=== PATIENT | male | born 1990 | race Caucasian/White ===

== ENCOUNTER 2023-05-07 16:41 | Emergency (ER) | payer SELFPAY ==
[2023-05-07 16:42] VITALS: BP 148/86; PULSE 66; RESP 16; TEMP 36.4; O2SAT 100; BMI 23.1
--- NOTE | 2023-05-07 16:46 | EDS_ITS ---
HPI History of Present Illness Chief Complaint: Cellulitis Informant: patient Onset/Context/Timing Onset: Days (5) Context: Gradual Onset Timing: Continuous Quality: Dull, burning, throbbing Location: Left fifth finger Worsened by: Dependent position Relieved by: Elevation of his left hand Narrative Narrative: Patient presents with an abscess to his left fifth finger that has been getting worse over the last 5 days. Patient states it is gradually getting worse. Pat ient describes the pain as dull, burning, and throbbing. Patient admits to some redness over the fifth finger and is spreading over to the ulnar aspect of the left hand. Patient admits to some purulent drainage. Patient mitts to some tingling into his finger. Patient states he has had other abscesses that drained spontaneously recently. Patient denies any fevers or chills. Patient denies any nausea or vomiting. PFSH PFSH Home Medications NK 05/07/23 [History Last Taken Unknown] cephalexin 500 mg capsule 500 mg PO Q6 #40 CAPSULES 05/07/23 [Rx Last Taken Unknown] hydrocodone-acetaminophen 5-325mg 5mg-325mg 1 tab PO Q6H PRN PRN Pain 3 days #10 TABLETS 05/07/23 [Rx Last Taken Unknown] mupirocin 2 % topical ointment 1 applic topical TID #1 tube 05/07/23 [Rx Last Taken Unknown] Allergy/AdvReac Type Severity Reaction Status Date / Time No Known Allergies Allergy Verified 05/07/23 16:42 Surgical History no surgical history no surgical history Social History Smoking Status: Never smoker ROS ROS ED Constitutional Constitutional ED: Denies chills or fever(s) Eyes Eyes: Denies blurry vision or change in vision ENT ENT ED: Denies rhinorrhea or sore throat Cardiovascular Cardiovascular: Denies chest pain or palpitations Respiratory/Chest Respiratory/Chest: Denies cough or dyspnea Gastrointestinal Gastrointestinal: Denies nausea or vomiting Genitourinary Genitourinary ED: Denies dysuria or hematuria Musculoskeletal Musculoskeletal: Denies back pain or neck pain Integumentary Reports abscess; Denies rash Neurologic Neurologic: Denies headache(s) or weakness Allergic/Immunologic Allergic/Immunologic ED: Denies mouth swelling or urticaria EXAM Physical Exam Const Vital Signs: 05/07/23 16:42 Temperature 97.5 F L Temperature Source Temporal Pulse Rate 66 Respiratory Rate 16 Blood Pressure 148/86 H Blood Pressure Mean 106 Pulse Ox 100 Oxygen Delivery Method Room Air Positive well nourished and well developed General Appearance ED: well developed and NAD HEENT Reports moist mucous membranes Neck supple Neuro oriented x3, CN's II-XII intact bilaterally and no sensory deficits noted Sensorium / Orientation: alert Motor Exam: strength 5/5 throughout Psych mental status grossly normal Skin Skin Narrative: There is edema, erythema, and purulent drainage coming from the dorsal aspect of the proximal phalanx of the left fifth finger. The erythema extends into the middle and distal phalanges. There is some erythema over the dorsal aspect of the distal fourth and fifth metacarpal areas. Range of motion was slightly limited in flexion and extension of the MP, PIP, and DIP joints secondary to pain. Sensation was intact to light touch in all digits. Capillary refill was less than 2 seconds in all digits. There is no tenderness over the palmar aspect of the fifth finger. MDM MDM MDM Narrative Medical decision making narrative: Patient was advised that this is most likely an abscess over his fifth finger. Differential diagnosis includes osteomyelitis, and tenosynovitis. X-rays of the left hand will be obtained to assess for osteomyelitis. CBC will be obtained to assess for leukocytosis and anemia. Basic metabolic profile will be obtained to assess for electrolyte abnormality and renal function. Lab Data Attestation: I reviewed the patient's lab results. Lab results narrative: CBC was reviewed. There is a mild leukocytosis of 14.6. The remainder is within normal limits. Basic metabolic profile was reviewed and was within normal limits. Labs: Laboratory Results - last 24 hr 05/07/23 17:35 WBC 14.6 H RBC 4.90 Hgb 14.8 Hct 44.7 MCV 91.2 MCH 30.2 MCHC 33.1 RDW Std Deviation 41.3 RDW Coeff of Vonnie 12.5 Plt Count 216 MPV 10.1 Immature Gran % (Auto) 0.400 Neut % (Auto) 80.6 H Lymph % (Auto) 10.9 L [place] % (Auto) 6.9 Eos % (Auto) 0.7 Baso % (Auto) 0.5 Absolute Neuts (auto) 11.8 H Absolute Lymphs (auto) 1.59 Nucleated RBC % 0 Sodium 137 Potassium 4.0 Chloride 105 Carbon Dioxide 28.0 Anion Gap 4 L BUN 14 Creatinine 0.89 Estim Creat Clear Calc 128.30 Est GFR (MDRD) Af Amer 126 Est GFR (MDRD) Non-Af 104 BUN/Creatinine Ratio 15.8 Glucose 112 H Calcium 9.4 Radiography Diagnostic Testing: Clinical Impression(s) from Imaging Studies Hand X-Ray 05/07/23 17:35 IMPRESSION: Soft tissue swelling throughout the hand. No acute osseous abnormalities. Electronically Signed: Yair Cehn DO at 18:11 EST , X-rays of the left hand were obtained. There are 3 views. On my independent interpretation, there is no acute fracture. There is no evidence of osteomyelitis. There is some soft tissue swelling noted. Radiologist also interpreted the x-ray and agrees. Additional Tests and Interventions Additional Tests or Interventions: The area was cleaned with chlorhexidine prep. The area was anesthetized with 1% plain lidocaine via digital block. A small cruciate incision was made using an 11 blade scalpel. A large amount of purulent drainage was expressed. The wound was left open. Bacitracin dressing was applied. Patient tolerated the procedure well. Treatment and Re-Evaluation :: Patient was given a dose of Ancef here. Patient was given IV fluids. Patient was given a tetanus booster. Patient was instructed to keep the wound clean and dry. Patient was instructed use warm compresses. Patient was instructed to follow-up with his primary care physician in 5 to 7 days. Patient was given a prescription for Keflex and a short course of [place]. Patient was also given a prescription for Bactroban cream to apply to his nares. Patient was instructed to return if worse in any way. Patient understood and was agreeable with the plan. All questions were answered. Procedures Other Procedures Procedure(s): The left small finger was cleaned and anesthetized with 1% lidocaine via digital block. The wound was opened with an 11 blade scalpel with a cruciate incision. Large amount of purulent drainage was expressed. Loculations were broken up. The wound was irrigated with normal saline. Patient tolerated procedure well. Bacitracin dressing was applied. Discharge Plan Triage Chief Complaint: Cellulitis ED Provider: Pérez Salmon Dx/Rx/DC Orders Clinical Impression: Abscess of left little finger, Tobacco abuse Instructions: ED Abscess Incision And Drainage Prescriptions: New hydrocodone-acetaminophen [hydrocodone-acetaminophen] 5-325 mg tablet 1 tab PO Q6H PRN PRN (Reason: Pain) 3 Days Qty: 10 0RF cephalexin [cephalexin] 500 mg capsule 500 mg PO Q6 Qty: 40 0RF mupirocin [mupirocin] 2 % ointment 1 applic topical TID Qty: 1 0RF Rx Instructions: Apply to inside of nares bilaterally No Action NK Primary Care Provider: Care Physician,No Primary Referrals: Jose Mayes MD [Med Staff - Lead Section Supervisor] - 5-7 Days NOT,DEFINED [Non-Staff] - Disposition Disposition: Home, Self Care
--- OUTSIDE RECORDS SUMMARY | 2023-05-07 17:07 | XMS RPT_ITS | CCD ---
Author Name Unknown Address [address] [place] [address] Organization [facility] Results Test Name Value Interpretation Reference Range Facil ity Summary Purpose Family History No Family History Records FoundNo Family History Records Found Advance Directives No Advanced Directives Records FoundNo Advanced Directives Records Found Additional Source Comments (unrecognized sect ion and content) No Status Records FoundNo Status Records Found INFORMATION SOURCE (unrecogn ized section and content) DATE CREATED AUTHOR AUTHOR'S KOTA ATION 04/27/2021 [facility] FOR RECORDS PERTAINING TO PATIENTS WHO ARE OR HAVE BEEN ENROLLED IN A CHEMICAL DEPENDENCY/SUBSTANCEABUSE PROGRAM, SOME INFORMATION MAY BE OMITTED. This clinical summary was aggregated from multiple sources. Caution should be exercised in using it in the provision of clinical care. This summary normalizes information from multiple sources, and as a consequence, information in this document may materially change the coding, format and clinical context of patient data. In addition, data may be omitted in some cases. CLINICAL DECISIONS SHOULD BE BASED ON THE PRIMARY CLINICAL RECORDS. [facility] [facility]. provides no warranty or guarantee of the accuracy or completeness of information in this document.
--- NOTE | 2023-05-07 17:35 | RAD_ITS ---
EXAM: XR LEFT HAND COMPLETE, 3 OR MORE VIEWS CLINICAL INDICATION: Injury/Pain TECHNIQUE: Frontal, lateral and oblique views of the left hand. COMPARISON: No relevant prior studies available. FINDINGS: BONES/JOINTS: No significant abnormality. No acute fracture. No subluxation. Normal alignment. Preservation of the joint space. No sclerotic or destructive changes observed. SOFT TISSUES: Soft tissue swelling throughout the hand. No radiopaque foreign body. RAD/Hand Min 3 Views IMPRESSION: Soft tissue swelling throughout the hand. No acute osseous abnormalities. Electronically Signed: Yair Chen DO at 18:11 EST ,
[2023-05-07 17:40] LABS: Absolute Lymphocyte Count 1.59 X10^3/uL (0.83-4.51); Absolute Neutrophil Count 11.8 X10^3/uL (2.0-7.7); Basophil# 0.08 X10^3/uL; Basophil% 0.5 % (0-1); Eosinophils% 0.7 % (0-5); Hematocrit 44.7 % (40-54); Hemoglobin 14.8 g/dL (13.0-16.5); Lymphocyte # 1.59 X10^3/ul (0.83-4.51); Lymphocyte % 10.9 % (19-41); Mean Corp Hgb Conc 33.1 g/dL (32-36); Mean Corpuscular Hgb 30.2 pg (27.0-32.0); Mean Corpuscular Volume 91.2 fL (80-94); Mean Platelet Vol. 10.1 fl (6.2-12.0); Monocyte# 1.01 X10^3/uL; Monocyte% 6.9 % (0-10); NRBC Flagged by Analyzer 0 % (0-5); Neutrophil # 11.77 X10^3/uL (2.7-7.7); Neutrophil % 80.6 % (47-70); Platelet Count 216 K/mm3 (150-450); RBC Distribution Width CV 12.5 % (11.6-14.6); RBC Distribution Width SD 41.3 fl (35.1-43.9); White Blood Count 14.6 K/mm3 (4.4-11.0)
[2023-05-07] MEDS: Diphth,Pertuss(Acell),Tet Vac 0.5 ML Vial IM (17:48)
[2023-05-07] MEDS: 0.9% Normal Saline (1000mL) 1,000 ML 1000 ML IV (17:48)
[2023-05-07] MEDS: Lidocaine 1% (20 ml mdv) 20 ML Vial INFILT (17:48)
[2023-05-07 17:55] LABS: Anion Gap 4 (5-15); BUN 14 mg/dL (7-18); BUN/Creat Ratio 15.8 RATIO (10-20); Calcium,Total 9.4 mg/dL (8.5-10.1); Chloride 105 mmol/L (98-107); Creatinine, Serum 0.89 mg/dL (0.70-1.30); EST Glomerular Filtration Rate 104 mL/min (>60); Est Glom Filt Rate - Afr Amer 126 mL/min (>60); Glucose 112 mg/dL (74-106); Sodium Level 137 mmol/L (136-145)
[2023-05-07 19:32] VITALS: BP 142/80; PULSE 92; RESP 18; TEMP 36.6; O2SAT 96
[2023-05-07 19:33] VITALS: BP 148/96; PULSE 96; RESP 16; TEMP 36.6; O2SAT 96
== END 2023-05-07 19:34 | disposition home or self-care (01) ==
PROVIDERS: Emergency Provider Emergency Medicine; Visit Provider Emergency Medicine
DX: L02.414 Cutaneous abscess of left upper limb (principal); Z72.0 Tobacco use
CPT/HCPCS: 73130; 80048; 85025; 90715; 96360; 96372; 99284; J7030

== ENCOUNTER 2024-04-07 13:31 | Emergency (ER) | payer SELFPAY ==
[2024-04-07 13:33] VITALS: BP 139/83; PULSE 66; RESP 15; TEMP 36.7; O2SAT 99; BMI 22.8
[2024-04-07 13:35] VITALS: BP 139/83; PULSE 67; RESP 15; TEMP 36.7; O2SAT 100
--- NOTE | 2024-04-07 13:50 | CT_ITS ---
INDICATION: right sided facial swelling EXAMINATION: CT FACIAL BONES - CT Maxillofacial W/ Contrast Injection TECHNIQUE: Helically acquired images were obtained of the facial bones. A radiation dose optimization technique was used for this scan. IV Contrast dosage and agent: None. COMPARISON: None. FINDINGS: SOFT TISSUES: No focal subcutaneous swelling. No discrete fluid collections. VISUALIZED PARANASAL SINUSES: Clear. VISUALIZED MASTOID AIR CELLS: Clear. FACIAL BONES, MANDIBLE AND TMJs: No displaced facial bone fracture. No lytic or blastic abnormality. VISUALIZED DENTITION: No periodontal osseous erosion. ORBITAL CONTENTS: Both globes, extraocular muscles and retrobulbar fat appear unremarkable. CT/Sinus/Facial Bone WITH [place]ras IMPRESSION: Unremarkable CT of the facial bones. Electronically Signed: Ralph Hayden MD at 16:02 EST ,
--- NOTE | 2024-04-07 13:52 | EX.ED.DYSGE1 ---
HPI History of Present Illness Chief Complaint: Other, Pain/Inj Narrative Narrative: Patient is a 33-year-old male with no known significant past medical history who presents to the emergency department chief complaint of right-sided facial swelling. Patient states that about 2 weeks ago he noted that he developed pain and swelling the right side of his face. He states that on he went to urgent care was told that he had a blocked salivary gland was placed on Augmentin. He states that he been trying to hydrate and use hard candy to dislodge it. He states that this is not helped his symptoms. He states that he is post to wear a mouthguard at night as he grinds his teeth. He states that he has not aware this is a has not worn this for significant time. He states that the pain is worse at night and improves throughout the day. Patient states that since things were not improving he wanted to come here for the valuation management. Patient states has been eating and drinking is able to swallow he states that is slightly painful for him to swallow. Denies any recent sick contacts. PFSH [facility] Home Medications ?Medication ?Instructions ?Recorded ?Last Taken ?Type cephalexin 500 mg capsule 500 mg PO Q6 #40 CAPSULES 05/07/23 Unknown Rx hydrocodone-acetaminophen 5-325mg 1 tab PO Q6H PRN PRN Pain 3 days 05/07/23 Unknown Rx 5mg-325mg #10 TABLETS mupirocin 2 % topical ointment 1 applic topical TID #1 tube 05/07/23 Unknown Rx methylprednisolone 4 mg tablets in See Rx Instructions PO .COMPLEX 04/07/24 Unknown Rx a dose pack #21 tabs Allergy/AdvReac Type Severity Reaction Status Date / Time No Known Allergies Allergy Verified 04/07/24 13:36 Social History Smoking Status: Never smoker ROS ROS ED ROS Narrative Constitutional: Denies any fevers or chills, headaches, lightness, dizziness Eyes, eyes, nose, throat: Denies change in vision double vision blurry vision, states that he is able to swallow but this is painful Cardiovascular: Denies chest pain or palpitations Respiratory: Denies coughing Abdomen: Denies nausea vomit diarrhea Neurological: Denies numbness and tingling Musculoskeletal: Complains of right sided facial swelling and pain as noted above Skin: Denies rashes or lesions EXAM Physical Exam Narrative Exam Narrative: General: Patient was lying in bed rest comfortably did not appear to be in acute distress Head: Atraumatic, normocephalic, no tenderness palpation over the temporal artery Eyes, ears, nose, throat: PERRL bilaterally, EOMI bilaterally, no conjunctival injection noted, patient has mild posterior pharynx erythema no concern for peritonsillar abscess, uvula midline no exudates noted. No tenderness palpation along his teeth. No palpable abscess intraorally. No sublingual swelling, TMs visualized bilaterally no concern for infection Neck: Soft, supple, trach midline, patient does have tenderness to palpation over the right TMJ area, no concern for Albin's angina Cardiovascular: Regular rate and rhythm] Extremities: +5/5 strength noted in the bilateral upper and lower extremities Neurological: Patient follow commands knew that he was at [facility] there is 2024. Sensation grossly intact Skin: Warm, dry, intact no rashes or lesions noted Const Vital Signs: 04/07/24 13:33 04/07/24 13:35 04/07/24 14:33 Temperature 98.1 F 98.1 F Temperature Source Temporal Temporal Pulse Rate 66 67 Respiratory Rate 15 15 Respiratory Effort Normal Non-Labored Respiratory Pattern Normal Blood Pressure 139/83 H 139/83 H Blood Pressure Mean 101 101 Pulse Ox 99 100 Oxygen Delivery Method Room Air Room Air MDM MDM MDM Narrative Medical decision making narrative: Patient is a 33-year-old male who presented to the emergency department chief complaint of right facial pain and swelling. On the differential diagnose includes but not limited to TMJ dysfunction, trigeminal neuralgia, sialoadenitis. Once workup is obtained reviewed he will be reevaluated. Patient BMP reviewed and was largely unremarkable sodium was normal at 136, potassium normal 3.6, creatinine normal at 0.85. Patient's CT face with contrast reviewed and showed no acute findings. I did discuss results with the patient. Advised him that this is likely secondary to TMJ dysfunction advised him to rotate Tylenol and ibuprofen [id number]. He was encouraged to follow-up with a primary care physician which she was referred to. He will be placed on a steroid taper pack. He was advised to go obtain a mouthguard and wear this at night to prevent him from grinding his teeth. He is encouraged return with worsening symptoms and concerns. He is agreeable this plan all question concerns answered he is discharged home in stable condition. Lab Data Labs: Laboratory Results - last 24 hr 04/07/24 14:54 Sodium 136 Potassium 3.6 Chloride 103 Carbon Dioxide 28.0 Anion Gap 5 BUN 13 Creatinine 0.85 Estim Creat Clear Calc 130.74 Est GFR (MDRD) Af Amer 131 Est GFR (MDRD) Non-Af 108 BUN/Creatinine Ratio 15.2 Glucose 95 Calcium 9.1 Radiography Diagnostic Testing: Clinical Impression(s) from Imaging Studies Facial/Sinus 04/07/24 13:50 IMPRESSION: Unremarkable CT of the facial bones. Electronically Signed: Ralph Hayden MD at 16:02 EST Reading Location ID and State: [facility] / [place] Tel , Service support , Discharge Plan Triage Chief Complaint: Other, Pain/Inj ED Provider: Tres Billings Dx/Rx/DC Orders Clinical Impression: TMJ dysfunction Prescriptions: New methylprednisolone 4 mg tablets,dose pack See Rx Instructions .ROUTE .COMPLEX Qty: 21 0RF Rx Instructions: for 6 days No Action hydrocodone-acetaminophen [hydrocodone-acetaminophen] 5-325 mg tablet 1 tab PO Q6H PRN PRN (Reason: Pain) 3 Days Qty: 10 0RF cephalexin [cephalexin] 500 mg capsule 500 mg PO Q6 Qty: 40 0RF mupirocin [mupirocin] 2 % ointment 1 applic topical TID Qty: 1 0RF Rx Instructions: Apply to inside of nares bilaterally Primary Care Provider: Care Physician,No Primary Referrals: Care Physician,Loni Primary [Primary Care Provider] - Lorena Magaña [facility], DO [[facility]] - Activity Restrictions/Additional Instructions: Take steroids as prescribed. Rotate Tylenol and ibuprofen [id number] as we discussed here when you are doing this you can take something every 3 hours. Obtain a mouthguard to prevent yourself from grinding her teeth at night. Return with worsening symptoms or other concerns. Your CT scan was normal did not show any acute findings. Print Language: Sami Disposition Disposition: Home, Self Care
[2024-04-07 15:13] LABS: Anion Gap 5 (5-15); BUN 13 mg/dL (7-18); BUN/Creat Ratio 15.2 RATIO (10-20); Calcium,Total 9.1 mg/dL (8.5-10.1); Chloride 103 mmol/L (98-107); Creatinine, Serum 0.85 mg/dL (0.70-1.30); EST Glomerular Filtration Rate 108 mL/min (>60); Est Glom Filt Rate - Afr Amer 131 mL/min (>60); Estimated Creatinine Clearance 130.74 ml/min; Glucose 95 mg/dL (74-106); Potassium 3.6 mmol/L (3.5-5.1); Sodium Level 136 mmol/L (136-145)
[2024-04-07 16:39] VITALS: BP 132/76; PULSE 72; RESP 18; TEMP 36.7; O2SAT 100
== END 2024-04-07 16:39 | disposition home or self-care (01) ==
PROVIDERS: Emergency Provider Emergency Medicine; Visit Provider Emergency Medicine
DX: M26.609 Unspecified temporomandibular joint disorder, unspecified side (principal)
CPT/HCPCS: 70487; 80048; 99283; Q9967; A4216